=== PATIENT | male | born 1965 | race Caucasian/White ===

== ENCOUNTER 2016-12-05 09:55 | Emergency (ER) | payer BC, OTHER ==
--- NOTE | 2016-12-05 10:00 | EDM.PDOC ---
ED HPI GENERAL MEDICAL PROBLEM - General Chief Complaint: Skin Complaint Stated Complaint: [id number] SHINGLES Time Seen by Provider: 12/05/16 09:59 Source of Information: Reports: Patient, Old Records, RN, RN Notes Reviewed History Limitations: Reports: No Limitations - History of Present Illness INITIAL COMMENTS - FREE TEXT/NARRATIVE: C/O having "shingles". Pt had onset of a tingling sensation a few days ago, then yesterday noticed a tender rash of red patches from the Rt mid-back around to the Rt midline chest. Pt has been working closely with a co-worker who got shingle last week and has a similar rash. Onset: Gradual Duration: Getting Worse Location: Reports: Chest, Back Quality: Reports: Ache, Sharp Severity: Severe Improves with: Reports: None Worsens with: Reports: None Associated Symptoms: Reports: No Other Symptoms Right Chest Pain Score (Numeric/FACES): 1 - Related Data Allergies Allergy/AdvReac Type Severity Reaction Status Date / Time No Known Allergies Allergy Verified 12/05/16 10:00 Home Meds: Home Meds Aspirin [Halfprin] 81 mg PO DAILY 11/06/14 [History] Calcium Carb & Citrate/Vit D3 [Citracal + D ER] 1 tab PO DAILY 11/06/14 [History ] Flaxseed [Flaxseed Oil] 1 cap PO DAILY 11/06/14 [History] Hydrocortisone [Anusol-HC] 1 dose RECTAL DAILY PRN 11/06/14 [History] Ibuprofen 600 mg PO Q8H PRN 11/06/14 [History] MV,Ca,Min/Iron Fum/FA/Vit K [Multi For Her Tablet] 1 tab PO DAILY 11/06/14 [ History] Psyllium [Metamucil SF] 1 dose PO DAILY 11/06/14 [History] Past Medical History Gastrointestinal History: Reports: Other (See Below) (colitis) Social & Family History - Family History Family Medical History: Noncontributory - Tobacco Use Smoking Status *Q: Former Smoker Used Tobacco, but Quit: Yes Month Tobacco Last Used: 12/11/83 - Alcohol Use Days Per Week of Alcohol Use: 0 - Recreational Drug Use Recreational Drug Use: No Drug Use in Last 12 Months: No - Living Situation & Occupation Occupation: Employed ED ROS GENERAL - Review of Systems Review Of Systems: ROS reveals no pertinent complaints other than HPI. ED EXAM, SKIN/RASH Exam: See Below Exam Limited By: No Limitations General Appearance: Alert, WD/WN, No Apparent Distress Ears: Normal External Exam Nose: Normal Inspection Throat/Mouth: Normal Inspection Head: Atraumatic, Normocephalic Neck: Normal Inspection, Supple, Non-Tender, Full Range of Motion Respiratory/Chest: No Respiratory Distress, Lungs Clear, Normal Breath Sounds, No Accessory Muscle Use, Chest Non-Tender Cardiovascular: Regular Rate, Rhythm Back Exam: Full Range of Motion Extremities: Normal Range of Motion Neurological: Alert, Oriented, No Motor/Sensory Deficits Psychiatric: Normal Affect, Normal Mood Skin: Warm, Dry, Intact, Zoster-Like Rash Location, Skin: Chest, Abdomen, Back Characteristics: Patchy, Vesicular, Erythematous Associated features: Tenderness Course - Vital Signs Last Recorded V/S: Last Vital Signs Temp 35.2 C 12/05/16 10:01 Pulse 60 12/05/16 10:01 Resp 18 12/05/16 10:01 BP 136/82 12/05/16 10:01 Pulse Ox 98 12/05/16 10:01 Departure - Departure Time of Disposition: 10:07 Disposition: Home, Self-Care 01 Condition: good Clinical Impression: Herpes zoster infection of thoracic region - Discharge Information Instructions: Shingles Forms: ED Department Discharge Additional Instructions: Rx: Valtrex 1g Rx: Prednisone 20mg Rx: Gabapentin 300mg Follow up in clinic if needed. Activity and work as tolerated, may need time off if pain is severe.
[2016-12-05 10:06] VITALS: BP 136/82
== END 2016-12-05 10:17 | disposition home or self-care (01) ==
LOC: DL.ED 09:55
DX: B02.9 Zoster without complications (principal); Z79.82 Long term (current) use of aspirin; Z87.891 Personal history of nicotine dependence; Z79.899 Other long term (current) drug therapy
CPT/HCPCS: 99282

== ENCOUNTER 2021-10-02 16:47 | Emergency (ER) | payer OTHER ==
[2021-10-02] MEDS ORDERED: Sodium Chloride 0.9% 10 ML Syringe FLUSH PRN (17:13)
[2021-10-02 18:00] LABS: CORONAVIRUS COVID-19 NAA NEGATIVE (NEGATIVE); RESPIRATORY SYNCYTIAL VIR NAA NEGATIVE (NEGATIVE)
[2021-10-02 18:00] LABS: PTT,PARTIAL THROMBOPLSTIN TIME 22.9 SEC (22.0-34.0)
[2021-10-02 18:15] LABS: ANION GAP 17.8 mEq/L (7-13); CHLORIDE,CL 102 mmol/L (98-107); SODIUM,NA 141 mmol/L (136-145)
[2021-10-02] MEDS ORDERED: Sodium Chloride 0.9% 1,000 ML IV ONE (18:32)
[2021-10-02 19:09] LABS: HEMOGLOBIN A1C 5.1 % (<5.7)
[2021-10-02 19:43] VITALS: BP 136/88; PULSE 86
== END 2021-10-02 20:45 | disposition home or self-care (01) ==
LOC: DL.ED 16:47
DX: R07.9 Chest pain, unspecified (principal); Z79.82 Long term (current) use of aspirin; Z20.822 Contact with and (suspected) exposure to COVID-19
CPT/HCPCS: 0241U; 36415; 71045; 80053; 83036; 83605; 83735; 83880; 84484; 85025; 85379; 85610; 85730; 93005; 99285; J3490; J7030

== ENCOUNTER 2024-04-14 05:51 | Day surgery (SDC) | payer BC, OTHER ==
[2024-04-14] MEDS ORDERED: Midazolam 1 MG/ML 2 ML SDV IV ONE (05:52)
[2024-04-14] MEDS ORDERED: fentaNYL 100 MCG/2 ML SDV IV ONE (05:52)
[2024-04-14] MEDS: Dextrose 5%-0.45% NaCl 1,000 ML IV SCH (06:14)
[2024-04-14] MEDS ORDERED: Midazolam 1 MG/ML 2 ML SDV ONE (06:41)
[2024-04-14] MEDS ORDERED: fentaNYL 100 MCG/2 ML SDV ONE (06:41)
[2024-04-14] MEDS: fentaNYL 100 MCG/2 ML SDV IV ONE ×2 (07:13→07:14)
[2024-04-14] MEDS: Midazolam 1 MG/ML 2 ML SDV IV ONE ×2 (07:15)
[2024-04-14 08:57] VITALS: BP 110/59; PULSE 86
== END 2024-04-14 08:50 | disposition home or self-care (01) ==
LOC: DL.ENDO 05:51
PROVIDERS: ATTEND Internal Medicine Gastroenterology
DX: C18.7 Malignant neoplasm of sigmoid colon (principal); K64.8 Other hemorrhoids
CPT/HCPCS: 45380; J2250; J3010; J7799